=== PATIENT | male | born 1980 | race Hispanic/Latino ===

== ENCOUNTER 2017-12-19 20:13 | Emergency (ER) | payer OTHER, SELFPAY ==
[2017-12-19] MEDS ORDERED: Bacitracin Zinc 1 Packet ONE (22:28)
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
[2017-12-19] MEDS ORDERED: Ketorolac Tromethamine 60 MG/2 ML VIAL ONE (23:05)
[2017-12-19] MEDS ORDERED: traMADol HCl 50 MG TAB ONE (23:05)
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
== END 2017-12-19 23:35 | disposition home or self-care (01) ==
LOC: ERS 20:13
DX: S80.211A Abrasion, right knee, initial encounter (principal); S40.211A Abrasion of right shoulder, initial encounter; S20.419A Abrasion of unspecified back wall of thorax, initial encounter; F17.210 Nicotine dependence, cigarettes, uncomplicated; V89.2XXA Person injured in unspecified motor-vehicle accident, traffic, initial encounter
CPT/HCPCS: 70450; 70486; 71045; 72125; 96372; 99406; J1885